=== PATIENT | female | born 1930 | race Caucasian/White ===

== ENCOUNTER 2016-11-30 05:31 | Emergency (ER) | payer MEDICARE ==
[2016-11-30 05:44] VITALS: TEMP 98.7
[2016-11-30 06:29] LABS: BASOPHILS % (AUTO) 2 % (0-3); EOSINOPHILS % (AUTO) 0 % (0-9); HEMATOCRIT 37 % (35-47); MEAN CORPUSCULAR HGB CONC 34.9 gm/dl (32.0-36.0); MEAN CORPUSCULAR VOLUME 83 fL (81-99); MONOCYTES % (AUTO) 4.9 % (0-12); NEUTROPHILS % (AUTO) 87.3 % (37-80)
[2016-11-30 06:33] LABS: CALCIUM 8.6 mg/dl (8.5-10.1); POTASSIUM 4.4 mMol/L (3.5-5.1)
[2016-11-30 06:34] LABS: APPEARANCE,URINE Clear; BILIRUBIN,URINE NEGATIVE (NEGATIVE); COLOR,URINE Yellow; GLUCOSE, URINE (UA) 2+ (NEGATIVE); KETONES,URINE 2+ (NEGATIVE); LEUKOCYTE ESTERASE ,URINE NEGATIVE (NEGATIVE); NITRATE,URINE NEGATIVE (NEGATIVE); OCCULT BLOOD,URINE 1+ (NEG-TRACE); PH,URINE 5.5; UROBILINOGEN,URINE 0.2 (0.2-1.0 EU)
[2016-11-30 06:44] LABS: WBC,URINE 0-3 (0-5AV/HPF)
[2016-11-30] MEDS ORDERED: ACETAMINOPHEN 500 MG 500 MG TAB PO ONE (06:51)
[2016-11-30] MEDS ORDERED: ACETAMINOPHEN 500 MG 500 MG TAB ONE (06:53)
[2016-11-30 07:11] VITALS: BP 163/75; PULSE 99; RESP 22; O2SAT 94
== END 2016-11-30 07:32 | disposition home or self-care (01) | DRG 605 ==
LOC: ED 05:31
DX: S30.0XXA Contusion of lower back and pelvis, initial encounter (principal); E11.65 Type 2 diabetes mellitus with hyperglycemia; E11.69 Type 2 diabetes mellitus with other specified complication; W19.XXXA Unspecified fall, initial encounter; Z79.84 Long term (current) use of oral hypoglycemic drugs
CPT/HCPCS: 36415; 72170; 80048; 81001; 85025; 99284

== ENCOUNTER 2019-04-04 14:42 | Inpatient (IN) | payer MEDICARE ==
[2019-04-04 15:27] LABS: BASOPHILS % (AUTO) 2 % (0-3); EOSINOPHILS % (AUTO) 1 % (0-9); HEMATOCRIT 39 % (35-47); HEMOGLOBIN 12.5 gm/dl (12.0-15.5); LYMPHOCYTES % (AUTO) 30.4 % (10-50); MEAN CORPUSCULAR HEMOGLOBIN 29.3 pg (27.0-32.0); MEAN CORPUSCULAR HGB CONC 32.2 gm/dl (32.0-36.0); MEAN CORPUSCULAR VOLUME 91 fL (81-99); MONOCYTES % (AUTO) 10.1 % (0-12); NEUTROPHILS % (AUTO) 56.5 % (37-80)
[2019-04-04 15:32] LABS: INR 0.99 (0.87-1.13)
[2019-04-04 15:39] LABS: ALBUMIN 3.4 gm/dl (3.4-5.0); BILIRUBIN,TOTAL 0.5 mg/dl (0.2-1.0); CALCIUM 9.1 mg/dl (8.5-10.1); CARBON DIOXIDE 27.6 mEq/L (21-32); CREATININE 1.23 mg/dl (0.60-1.00); CRP INFLAMMATORY 0.2 mg/dl (0.00-0.33); MAGNESIUM 1.5 mg/dl (1.8-2.4); TOTAL PROTEIN 6.9 gm/dl (6.4-8.2)
[2019-04-04 15:52] LABS: APPEARANCE,URINE Slightly Cloudy; BILIRUBIN,URINE NEGATIVE (NEGATIVE); COLOR,URINE Yellow; GLUCOSE, URINE (UA) 2+ (NEGATIVE); KETONES,URINE 1+ (NEGATIVE); LEUKOCYTE ESTERASE ,URINE TRACE (NEGATIVE); NITRATE,URINE POSITIVE (NEGATIVE); OCCULT BLOOD,URINE TRACE INTACT (NEG-TRACE); PH,URINE 5.5; UROBILINOGEN,URINE 0.2 (0.2-1.0 EU)
[2019-04-04] MEDS ORDERED: MAGNESIUM SULFATE 1 GM/2 ML SOL IV ONE (15:59)
[2019-04-04] MEDS ORDERED: SODIUM CHLORIDE 0.9% 1000ML 1,000 ML IV ONE (15:59)
[2019-04-04 16:02] LABS: BACTERIA 3+ (< 1+); CRYSTALS NEGATIVE (0-3 AVE/HPF); EPITHELIAL CELLS 0-2 (SQUAMOUS); RBC,URINE 0-3 (0-3AV/HPF)
[2019-04-04] MEDS ORDERED: MAGNESIUM SULFATE 5 GM/10 ML SOL ONE (16:26)
[2019-04-04] MEDS ORDERED: CEFTRIAXONE 1 GM PDS 1 GM in SODIUM CHLORIDE 0.9% 50 ML 50 ML IV ONE (17:05)
[2019-04-04] MEDS ORDERED: CEFTRIAXONE 1 GM PDS ONE (17:43)
[2019-04-04] MEDS ORDERED: DOCUSATE SODIUM 100 MG SGL PO PRN (17:48)
[2019-04-04] MEDS ORDERED: PATIENT EDUCATION 1 MISC PRN (18:57)
[2019-04-04] MEDS: SODIUM CHLORIDE 0.45% 1000 ML 1,000 ML IV SCH (19:11)
[2019-04-04] MEDS: MEMANTINE HCL 10 MG PO SCH (20:39)
[2019-04-05] MEDS: SODIUM CHLORIDE 0.45% 1000 ML 1,000 ML IV SCH (01:41)
[2019-04-05 07:08] LABS: CALCIUM 8.3 mg/dl (8.5-10.1); CARBON DIOXIDE 26.2 mEq/L (21-32); CREATININE 1.01 mg/dl (0.60-1.00); MAGNESIUM 1.7 mg/dl (1.8-2.4)
[2019-04-05 07:27] LABS: BASOPHILS % (AUTO) 2 % (0-3); EOSINOPHILS % (AUTO) 1 % (0-9); HEMATOCRIT 39 % (35-47); HEMOGLOBIN 12.2 gm/dl (12.0-15.5); LYMPHOCYTES % (AUTO) 31.4 % (10-50); MEAN CORPUSCULAR HEMOGLOBIN 28.8 pg (27.0-32.0); MEAN CORPUSCULAR HGB CONC 31.6 gm/dl (32.0-36.0); MEAN CORPUSCULAR VOLUME 91 fL (81-99); MONOCYTES % (AUTO) 10.1 % (0-12); NEUTROPHILS % (AUTO) 56.2 % (37-80)
[2019-04-05] MEDS: ASPIRIN EC 81 MG PO SCH (08:18)
[2019-04-05] MEDS: METFORMIN HYDROCHLORIDE 500 MG TAB PO SCH ×2 (08:18→16:42)
[2019-04-05] MEDS: MEMANTINE HCL 10 MG PO SCH (08:19)
[2019-04-05] MEDS: CEPHALEXIN 250 MG/5 ML BOTTLE PO SCH ×4 (11:25→21:03)
[2019-04-05] MEDS: SODIUM CHLORIDE 0.9% FLUSH 10 ML SOL IV PRN (21:03)
[2019-04-05] MEDS: MEMANTINE HYDROCHLORIDE 10 MG TAB PO SCH (21:05)
[2019-04-06] MEDS: ASPIRIN EC 81 MG PO SCH (09:12)
[2019-04-06] MEDS: METFORMIN HYDROCHLORIDE 500 MG TAB PO SCH ×3 (09:12→19:04)
[2019-04-06] MEDS: MEMANTINE HYDROCHLORIDE 10 MG TAB PO SCH ×2 (09:13→20:19)
[2019-04-06] MEDS: CEPHALEXIN 250 MG/5 ML BOTTLE PO SCH ×3 (09:14→20:20)
[2019-04-06] MEDS ORDERED: HYDRALAZINE HYDROCHLORIDE 20 MG/ML SOL IV PRN (20:03)
[2019-04-06] MEDS: SODIUM CHLORIDE 0.9% FLUSH 10 ML SOL IV PRN (20:19)
[2019-04-07 07:33] LABS: BASOPHILS % (AUTO) 2 % (0-3); EOSINOPHILS % (AUTO) 1 % (0-9); HEMATOCRIT 40 % (35-47); HEMOGLOBIN 12.7 gm/dl (12.0-15.5); LYMPHOCYTES % (AUTO) 23.4 % (10-50); MEAN CORPUSCULAR HGB CONC 31.8 gm/dl (32.0-36.0); MEAN CORPUSCULAR VOLUME 91 fL (81-99); MONOCYTES % (AUTO) 7.4 % (0-12); NEUTROPHILS % (AUTO) 66.7 % (37-80)
[2019-04-07 07:33] LABS: CALCIUM 8.5 mg/dl (8.5-10.1); CARBON DIOXIDE 18.7 mEq/L (21-32); CREATININE 1.1 mg/dl (0.60-1.00)
[2019-04-07] MEDS: METFORMIN HYDROCHLORIDE 500 MG TAB PO SCH ×2 (08:41→16:56)
[2019-04-07] MEDS: ASPIRIN EC 81 MG PO SCH (08:41)
[2019-04-07] MEDS: MEMANTINE HYDROCHLORIDE 10 MG TAB PO SCH ×2 (08:41→20:22)
[2019-04-07] MEDS: CEPHALEXIN 250 MG/5 ML BOTTLE PO SCH ×3 (09:03→20:20)
[2019-04-07] MEDS ORDERED: ALUMINUM/MAGNESIUM 30 ML SUS PO PRN (09:23)
[2019-04-07] MEDS: FAMOTIDINE 20 MG TAB PO SCH (14:00)
[2019-04-08] MEDS: FAMOTIDINE 20 MG TAB PO SCH (06:25)
[2019-04-08 08:27] VITALS: PULSE 80; O2SAT 97
[2019-04-08] MEDS: METFORMIN HYDROCHLORIDE 500 MG TAB PO SCH (08:31)
[2019-04-08] MEDS: ASPIRIN EC 81 MG PO SCH (08:32)
[2019-04-08] MEDS: CEPHALEXIN 250 MG/5 ML BOTTLE PO SCH (08:34)
[2019-04-08] MEDS ORDERED: RANITIDINE HCL 150 MG TAB PO SCH (09:00)
[2019-04-08] MEDS: MEMANTINE HYDROCHLORIDE 10 MG TAB PO SCH (09:52)
[2019-04-08 10:44] VITALS: TEMP 98.2
[2019-04-08 11:45] VITALS: BP 112/64; RESP 20
== END 2019-04-08 12:15 | disposition swing bed (61) | DRG 65 ==
LOC: ED 14:42 → ACUTE CARE 17:41 → UNDOADMIN 17:41 → ACUTE CARE 18:03
PROVIDERS: ADMIT Family Medicine; ATTEND Family Medicine
PROC: F01L0FZ Muscle Performance Assessment of Musculoskeletal System - Lower Back / Lower Extremity using Assistive, Adaptive, Supportive or Protective Equipment (ICD-10-PCS; principal; 2019-04-05)
PROC: F01ZDZZ Gait and/or Balance Assessment (ICD-10-PCS; 2019-04-05)
PROC: F02Z0FZ Bathing/Showering Assessment using Assistive, Adaptive, Supportive or Protective Equipment (ICD-10-PCS; 2019-04-05)
PROC: F02Z3FZ Grooming/Personal Hygiene Assessment using Assistive, Adaptive, Supportive or Protective Equipment (ICD-10-PCS; 2019-04-05)
DX: I63.89 Other cerebral infarction (principal); N39.0 Urinary tract infection, site not specified; E86.0 Dehydration; E83.42 Hypomagnesemia; R47.81 Slurred speech; E11.65 Type 2 diabetes mellitus with hyperglycemia; W18.30XA Fall on same level, unspecified, initial encounter; R53.83 Other fatigue; K21.9 Gastro-esophageal reflux disease without esophagitis
CPT/HCPCS: 36415; 70450; 71045; 80048; 80053; 81001; 82962; 83735; 84484; 85025; 85610; 86140; 87077; 87088; 87186; 93005; 93012; 96365; 96374; 99231; 99284; 99285; J0360; J0696; J3475; A9270-GY

== ENCOUNTER 2019-04-08 11:20 | Inpatient (IN) | payer MEDICARE ==
[2019-04-08] MEDS ORDERED: DOCUSATE SODIUM 100 MG SGL PO PRN (12:02)
[2019-04-08] MEDS: CEPHALEXIN 250 MG/5 ML BOTTLE PO SCH ×2 (13:54→20:00)
[2019-04-08] MEDS: METFORMIN HYDROCHLORIDE 500 MG TAB PO SCH (17:27)
[2019-04-08] MEDS: MEMANTINE HYDROCHLORIDE 10 MG TAB PO SCH (20:00)
[2019-04-09] MEDS: FAMOTIDINE 20 MG TAB PO SCH (06:26)
[2019-04-09] MEDS: GLIMEPIRIDE 2 MG TAB PO SCH (09:24)
[2019-04-09] MEDS: CEPHALEXIN 250 MG/5 ML BOTTLE PO SCH ×3 (09:24→21:33)
[2019-04-09] MEDS: ASPIRIN EC 81 MG PO SCH (09:24)
[2019-04-09] MEDS: MULTIVITAMIN2 1 EA TAB PO SCH (09:26)
[2019-04-09] MEDS: MEMANTINE HYDROCHLORIDE 10 MG TAB PO SCH ×2 (09:26→21:33)
[2019-04-09] MEDS: METFORMIN HYDROCHLORIDE 500 MG TAB PO SCH ×2 (09:26→17:00)
[2019-04-09] MEDS: CHOLECALCIFEROL 1,000 IU (25 MCG) TAB PO SCH (09:26)
[2019-04-10] MEDS: FAMOTIDINE 20 MG TAB PO SCH (06:39)
[2019-04-10] MEDS: GLIMEPIRIDE 2 MG TAB PO SCH (09:44)
[2019-04-10] MEDS: MEMANTINE HYDROCHLORIDE 10 MG TAB PO SCH ×2 (09:44→21:31)
[2019-04-10] MEDS: ASPIRIN EC 81 MG PO SCH (09:44)
[2019-04-10] MEDS: METFORMIN HYDROCHLORIDE 500 MG TAB PO SCH ×2 (09:45→16:43)
[2019-04-10] MEDS: MULTIVITAMIN2 1 EA TAB PO SCH (09:45)
[2019-04-10] MEDS: CHOLECALCIFEROL 1,000 IU (25 MCG) TAB PO SCH (09:45)
[2019-04-10] MEDS: CEPHALEXIN 250 MG/5 ML BOTTLE PO SCH (11:51)
[2019-04-11] MEDS: FAMOTIDINE 20 MG TAB PO SCH (06:15)
[2019-04-11] MEDS: ASPIRIN EC 81 MG PO SCH (08:48)
[2019-04-11] MEDS: GLIMEPIRIDE 2 MG TAB PO SCH (08:48)
[2019-04-11] MEDS: METFORMIN HYDROCHLORIDE 500 MG TAB PO SCH ×2 (08:48→18:07)
[2019-04-11] MEDS: CHOLECALCIFEROL 1,000 IU (25 MCG) TAB PO SCH (08:48)
[2019-04-11] MEDS: MULTIVITAMIN2 1 EA TAB PO SCH (08:48)
[2019-04-11] MEDS: MEMANTINE HYDROCHLORIDE 10 MG TAB PO SCH ×2 (10:27→21:01)
[2019-04-12] MEDS: FAMOTIDINE 20 MG TAB PO SCH (07:38)
[2019-04-12] MEDS: MEMANTINE HYDROCHLORIDE 10 MG TAB PO SCH ×2 (08:19→21:21)
[2019-04-12] MEDS: METFORMIN HYDROCHLORIDE 500 MG TAB PO SCH ×2 (08:19→17:08)
[2019-04-12] MEDS: MULTIVITAMIN2 1 EA TAB PO SCH (08:19)
[2019-04-12] MEDS: ASPIRIN EC 81 MG PO SCH (08:19)
[2019-04-12] MEDS: GLIMEPIRIDE 2 MG TAB PO SCH (08:19)
[2019-04-12] MEDS: CHOLECALCIFEROL 1,000 IU (25 MCG) TAB PO SCH (08:20)
[2019-04-12] MEDS: NOVOLOG FLEXPEN SC SCH ×2 (17:15→21:21)
[2019-04-13] MEDS: FAMOTIDINE 20 MG TAB PO SCH (07:31)
[2019-04-13] MEDS: NOVOLOG FLEXPEN SC SCH ×4 (08:20→20:13)
[2019-04-13] MEDS: ASPIRIN EC 81 MG PO SCH (08:22)
[2019-04-13] MEDS: GLIMEPIRIDE 2 MG TAB PO SCH (08:22)
[2019-04-13] MEDS: MEMANTINE HYDROCHLORIDE 10 MG TAB PO SCH ×2 (08:23→20:14)
[2019-04-13] MEDS: MULTIVITAMIN2 1 EA TAB PO SCH (08:23)
[2019-04-13] MEDS: METFORMIN HYDROCHLORIDE 500 MG TAB PO SCH ×2 (08:23→16:45)
[2019-04-13] MEDS: CHOLECALCIFEROL 1,000 IU (25 MCG) TAB PO SCH (08:24)
[2019-04-14] MEDS: FAMOTIDINE 20 MG TAB PO SCH (06:00)
[2019-04-14] MEDS: GLIMEPIRIDE 2 MG TAB PO SCH (08:28)
[2019-04-14] MEDS: ASPIRIN EC 81 MG PO SCH (08:29)
[2019-04-14] MEDS: METFORMIN HYDROCHLORIDE 500 MG TAB PO SCH ×2 (08:29→17:37)
[2019-04-14] MEDS: MULTIVITAMIN2 1 EA TAB PO SCH (08:29)
[2019-04-14] MEDS: MEMANTINE HYDROCHLORIDE 10 MG TAB PO SCH ×2 (08:29→20:26)
[2019-04-14] MEDS: CHOLECALCIFEROL 1,000 IU (25 MCG) TAB PO SCH (08:30)
[2019-04-14] MEDS: NOVOLOG FLEXPEN SC SCH ×4 (08:30→20:26)
[2019-04-15] MEDS: FAMOTIDINE 20 MG TAB PO SCH (07:45)
[2019-04-15] MEDS: NOVOLOG FLEXPEN SC SCH ×4 (07:52→20:46)
[2019-04-15] MEDS: METFORMIN HYDROCHLORIDE 500 MG TAB PO SCH ×2 (08:44→17:24)
[2019-04-15] MEDS: GLIMEPIRIDE 2 MG TAB PO SCH (08:44)
[2019-04-15] MEDS: MULTIVITAMIN2 1 EA TAB PO SCH (08:44)
[2019-04-15] MEDS: MEMANTINE HYDROCHLORIDE 10 MG TAB PO SCH ×2 (08:44→20:41)
[2019-04-15] MEDS: CHOLECALCIFEROL 1,000 IU (25 MCG) TAB PO SCH (08:45)
[2019-04-15] MEDS: ASPIRIN EC 81 MG PO SCH (08:45)
[2019-04-15 10:41] VITALS: TEMP 97.8
[2019-04-15] MEDS ORDERED: LEVEMIR PEN SC SCH (21:00)
[2019-04-16] MEDS: FAMOTIDINE 20 MG TAB PO SCH (06:23)
[2019-04-16 07:36] VITALS: BP 150/74; PULSE 72; RESP 18; O2SAT 96
[2019-04-16] MEDS: NOVOLOG FLEXPEN SC SCH (08:01)
[2019-04-16] MEDS: METFORMIN HYDROCHLORIDE 500 MG TAB PO SCH (08:43)
[2019-04-16] MEDS: MEMANTINE HYDROCHLORIDE 10 MG TAB PO SCH (08:43)
[2019-04-16] MEDS: MULTIVITAMIN2 1 EA TAB PO SCH (08:44)
[2019-04-16] MEDS: CHOLECALCIFEROL 1,000 IU (25 MCG) TAB PO SCH (08:44)
[2019-04-16] MEDS: GLIMEPIRIDE 2 MG TAB PO SCH (08:44)
[2019-04-16] MEDS: ASPIRIN EC 81 MG PO SCH (08:44)
== END 2019-04-16 10:35 | disposition home or self-care (01) | DRG 57 ==
LOC: ACUTE CARE 12:20
PROVIDERS: ADMIT Family Medicine; ATTEND Family Medicine
PROC: F01ZBZZ Bed Mobility Assessment (ICD-10-PCS; principal; 2019-04-08)
PROC: F01ZCZZ Transfer Assessment (ICD-10-PCS; 2019-04-08)
PROC: F02Z0FZ Bathing/Showering Assessment using Assistive, Adaptive, Supportive or Protective Equipment (ICD-10-PCS; 2019-04-09)
PROC: F02Z3FZ Grooming/Personal Hygiene Assessment using Assistive, Adaptive, Supportive or Protective Equipment (ICD-10-PCS; 2019-04-09)
DX: I69.30 Unspecified sequelae of cerebral infarction (principal); G81.91 Hemiplegia, unspecified affecting right dominant side; E11.65 Type 2 diabetes mellitus with hyperglycemia
CPT/HCPCS: 82962; 93306; J1815; A9270-GY